=== PATIENT | male | born 1985 | race Caucasian/White ===

== ENCOUNTER 2022-08-14 22:59 | Emergency (ER) | payer OTHER ==
[2022-08-14] MEDS ORDERED: Acetaminophen 500 MG TAB ONE (23:44)
[2022-08-14] MEDS ORDERED: Ibuprofen 200 MG TAB ONE (23:44)
== END 2022-08-14 23:49 | disposition home or self-care (01) ==
LOC: CSHERS 22:59
DX: H92.01 Otalgia, right ear (principal); I10 Essential (primary) hypertension
CPT/HCPCS: 99282